=== PATIENT | female | born 1995 | race Caucasian/White ===

== ENCOUNTER → 2019-09-07 | Outpatient (REF) | payer OTHER ==
[2019-09-07 19:06] LABS: ALBUMIN 3.7 GM/DL (3.2-5.2); ALT/SGPT 30 U/L (12-78); BILIRUBIN,DIRECT < 0.1 MG/DL (0.0-0.2); BILIRUBIN,TOTAL 0.2 MG/DL (0.2-1.0); C REACTIVE PROTEIN QUANTITATIV 1.83 MG/DL (0.00-0.30); TOTAL PROTEIN 8.2 GM/DL (6.4-8.2)
[2019-09-08 09:23] LABS: THYROID PEROXIDASE ANTIBODY < 28.0 U/ML (<60.0)
[2019-09-10 00:16] LABS: ANTI-MITOCHONDRIAL ANTIBODY 32.3 Units (0.0-20.0); CERULOPLASMIN 50.9 mg/dL (19.0-39.0)
== END ==
LOC: M SFHCRHEU 13:33
PROVIDERS: ATTEND Internal Medicine
DX: R79.82 Elevated C-reactive protein (CRP) (principal); R76.0 Raised antibody titer; R94.5 Abnormal results of liver function studies; R53.82 Chronic fatigue, unspecified